=== PATIENT | male | born 1955 | race Caucasian/White ===

== ENCOUNTER 2023-07-21 11:21 | Outpatient (CLI) | payer BC, SELFPAY ==
--- NOTE | 2023-07-21 11:56 | PETR_ITS ---
PROCEDURE INFORMATION: Exam: PET/CT Skull Base to Mid-thigh Exam date and time: 07/21/2023 12:17 PM Age: 68 years old Clinical indication: Condition or disease; Primary cancer: Malignant neoplasm of middle lobe bronchus or lung. Malignant neoplasm of unspecified part of right bronchus or lung; Initial oncological staging assessment LABS AND CLINICAL REPORTS: Glucose: 92 mg/dl Treatment strategy for malignancy (PET staging): Initial Staging (PI) TECHNIQUE: Imaging protocol: Following at least four-hour fasting and following the injection of radiopharmaceutical, low dose CT images were obtained. Then, PET images were obtained. Attenuation corrected images were constructed using the CT scan. Fused images of PET and CT were reviewed. The standardized uptake values (SUV) reported below are maximum values within a region of interest, expressed in gm/ml. Exam includes orbital meatal line to mid-thigh. Radiopharmaceutical: 12.07 mCi F-18 FDG (Fluorodeoxyglucose), IV. Time of imaging post radiopharmaceutical administration: 1 hour Injection site: Right antecubital COMPARISON: No relevant prior studies available. FINDINGS: Brain: Visualized brain has normal physiologic uptake. Pharynx: No abnormal uptake. Larynx: No abnormal uptake. Lungs, pleura and trachea: No abnormal uptake. A left lower lobe calcified granuloma is present. Heart: Normal physiologic uptake. Mediastinal space: No abnormal uptake. Liver: No abnormal uptake. Gallbladder and bile ducts: No abnormal uptake. Pancreas: No abnormal uptake. Spleen: No abnormal uptake. Adrenal glands: No abnormal uptake. Kidneys and ureters: Normal physiologic uptake. Stomach and bowel: No abnormal uptake. There are scattered colonic diverticula. Reproductive: There is moderate prominence of the prostate gland without definite abnormal focal uptake. Vasculature: No abnormal uptake. There are diffuse atherosclerotic changes. Lymph nodes: Radiotracer avid lymphadenopathy involving the left neck extending from the region of the parotid gland to the supraclavicular space are noted. Examples: The most superiorly located lymph node is medial to the left parotid gland measuring 1.1 cm on series 3, image 61, SUV max 9.9. A lymph node inferior to the left mandibular body on series 3, image 73 measures 2.2 x 1.9 cm on series 3, image 73, SUV max 10.9; a left supraclavicular lymph node deep to the sternocleidomastoid muscle measuring 2.5 x 1.3 cm on series 3, image 81 is noted, SUV max 16.6. Radiotracer avid left subpectoral and left axillary lymph nodes are present, for example measuring 2.1 x 1.4 cm on series 3, image 118, SUV max 5.5 and more inferiorly on image 133 measuring 3.4 x 1.2 cm, SUV max 7.0. The most inferiorly located lymph node in this region measures 1.6 x 1.4 cm on image 140 in the inferior left axillary/left chest wall with an SUV max 3.7. No radiotracer avid mediastinal or hilar lymph nodes. No radiotracer avid lymph nodes or lymphadenopathy in the abdomen or pelvis is present. Bones/joints: Radiotracer avid osseous lesions are present as follows: Within a lucent lesion in the posterior right humeral head measuring 8 mm on series 3, image 89, SUV max 6.4; in the medial aspect of the proximal right humeral metaphysis without a well-defined lesion on the CT images, SUV max 13.4 and in the L2 vertebral body anteriorly, SUV max 14.1 within a lytic lesion measuring 2.1 x [address] series 3, image 190. Degenerative changes in the spine are noted. Soft tissues: There is a focus of abnormal uptake in the soft tissues adjacent to the lateral aspect of the left mandibular body, SUV max 11.0 without a well-defined lesion on correlating CT series 3 image 69. There is benign-appearing, likely physiologic uptake in the region of the right thumb thenar musculature. METRICS: Mediastinal blood pool: SUV max 2.1 Liver uptake: SUV max 3.1, SUV mean 2.4 [facility] INITIAL [id number] IMPRESSION: 1. Radiotracer avid lymphadenopathy is noted within the left neck, left axilla and left subpectoral region consistent with malignancy. 2. A focus of abnormal uptake in the soft tissues adjacent to the left lateral aspect of the left mandibular body is noted without a well-defined lesion on the CT images, possibly representing an additional focus of malignancy. 3. Radiotracer avid osseous lesions are noted in the proximal right humerus and the L2 vertebral body consistent with metastases. 4. Additional nonurgent findings as detailed above.
== END 2023-07-21 11:22 | disposition home or self-care (01) ==
PROVIDERS: PCP Family Medicine; Visit Provider Specialist
DX: C06.89 Malignant neoplasm of overlapping sites of other parts of mouth (principal)
CPT/HCPCS: 78815; A9552